=== PATIENT | male | born 1980 | race Two or more races ===

== ENCOUNTER 2017-03-06 08:58 | Day surgery (SDC) | payer BC ==
[~2017-03-06] VITALS: Ht 167.6 cm; Wt 77.1 kg
[2017-03-06] VITALS (9 sets, daily range): BP systolic 104–119; BP diastolic 58–74
--- NOTE | 2017-03-06 06:56 | Anethesia Preoperative Eval ---
Anesthesia Pre-op PMH/ROS General Date of Evaluation: Mar 06, 2017 Time of Evaluation: 06:55 Anesthesiologist: floyd ASA Score: ASA 3 Mallampati Score Class I : Soft palate, uvula, fauces, pillars visible Class II: Soft palate, uvula, fauces visible Class III: Soft palate, base of uvula visible Class IV: Only hard plate visible Mallampati Classification: Class II Surgeon: peter Diagnosis: gerd Surgical Procedure: egd Anesthesia History: none Social History: current smoker Family History: no anesthesia problems Allergies: Coded Allergies: NO KNOWN ALLERGIES (Verified Allergy, Unknown, 03/06/17) Medications: see eMAR Past Medical History Cardiovascular: Reports: HTN, other - hypercholesterolemia Pulmonary: Reports: other - tobacco use Gastrointestinal/Genitourinary: Reports: GERD Anesthesia Pre-op Phys. Exam Physician Exam Last Vital Signs Date Time Temp Pulse Resp B/P (MAP) Pulse Ox O2 Delivery O2 Flow Rate FiO2 03/06/17 09:29 97.6 58 17 114/72 98 Room Air Constitutional: NAD Neurologic: CN 2-12 intact Cardiovascular: RRR Respiratory: CTA Gastrointestinal: S/NT/ND Airway Exam Mallampati Score: Class II MO: full Neck: supple TMD: 2fb ROM: full Teeth: intact Anesthesia Pre-op A/P Risk Assessment & Plan Assessment: asa3 Plan: mac Status Change Before Surgery: No Pre-Antibiotics Drug: WALTER Cloud Mar 06, 2017 06:56
[2017-03-06] MEDS ORDERED: NKM (09:29)
--- NOTE | 2017-03-06 10:44 | Pre-Procedure Note/Attestation ---
Pre-Procedure Note/Attestation Complete Prior to Procedure Planned Procedure: not applicable Procedure Narrative: EGD Indications for Procedure Pre-Operative Diagnosis: GERD, abd pain Attestation I attest that I discussed the nature of the procedure; its benefits; risks and complications; and alternatives (and the risks and benefits of such alternatives ), prior to the procedure, with the patient (or the patient's legal accounts payable representative). I attest that, if there was a reasonable possibility of needing a blood transfusion, the patient (or the patient's legal accounts payable representative) was given the [facility] standardized written summary, pursuant to the Natanael Yovanny Blood Safety Act ([place] Health and Safety Code # 1645, as amended). I attest that I re-evaluated the patient just prior to the surgery and that there has been no change in the patient's H&P, except as documented below: MARIANNA ALBERTO Mar 06, 2017 10:44
--- NOTE | 2017-03-06 10:46 | Short Stay Surgery H&P ---
History of Present Illness History of Present Illness Chief Complaint gerd, abd pain HPI Terrance Mark is a 36 year old male who was admitted on for GERD Patient History Allergies: Coded Allergies: NO KNOWN ALLERGIES (Verified Allergy, Unknown, 03/06/17) PAST MEDICAL HISTORY: (1) HTN (hypertension) (2) Hypercholesteremia Past Surgeries: Social History: Medication History Scheduled No Known Medications* (NKM - No Known Medications*), 0 ., (Reported) Review of Systems Cardiovascular: Reports: no symptoms Respiratory: Reports: no symptoms Skeletal: Reports: no symptoms Gastrointestinal: Reports: no symptoms, gastro esophageal reflux disease Genitourinary: Reports: no symptoms Neurologic: Reports: no symptoms Endocrine: Reports: no symptoms Hematologic: Reports: no symptoms Physical Exam Vital Signs Last Vital Signs Date Time Temp Pulse Resp B/P (MAP) Pulse Ox O2 Delivery O2 Flow Rate FiO2 03/06/17 09:29 97.6 58 17 114/72 98 Room Air Skin: normal HENT: normal Heart: normal Lungs: normal Abdomen: normal Extremities: normal Plan Plan of Care EGD Final Diagnosis: Attestation Are the patient's medical conditions optimized for surgery? Attestation Response: yes MARIANNA ALBERTO Mar 06, 2017 10:46
[2017-03-06] MEDS ORDERED: Lidocaine 1% MPF 10mg/ml 5ml ONE (11:00)
[2017-03-06] MEDS ORDERED: Propofol 200mg/20ml IV ONE (11:00)
--- NOTE | 2017-03-06 11:07 | Endoscopy Procedure Note ---
Endoscopy Procedure Note Indication for Procedure: gerd Procedures Performed: EGD Operative Findings/Diagnosis: gastritis Specimen: yes Pt Tolerated Procedure Well: Yes Estimated Blood Loss: none Anesthesiologist: radhames Anesthesia: MAC Implant(s) used?: No 50 yrs or older w/o bx or poly: Not Applicable 10yrs. F/U not recommended: Not Applicable MARIANNA ALBERTO Mar 06, 2017 11:07
[2017-03-06] MEDS ORDERED: fentaNYL 100 mcg/2 mL IV PRN (11:30)
[2017-03-06] MEDS ORDERED: Midazolam 2mg/2ml Inj IVP PRN (11:30)
[2017-03-06] MEDS ORDERED: DiphenhydrAMINE 50mg/ml Inj IVP PRN (11:30)
[2017-03-06] MEDS ORDERED: Atropine Inj 1mg/10ml Syr IV PRN (11:30)
--- NOTE | 2017-03-06 11:30 | Immediate Post-Op Evaluation ---
Immediate Post-Op Evalulation Immediate Post-Op Evalulation Procedure: egd Date of Evaluation: Mar 06, 2017 Time of Evaluation: 11:28 IV Fluids: 450ml 0.9ns Blood Products: none Estimated Blood Loss: negligible Blood Pressure Systolic: 113 Blood Pressure Diastolic: 61 Pulse Rate: 65 Respiratory Rate: 18 O2 Sat by Pulse Oximetry: 100 Temperature (Fahrenheit): 98.1 Pain Score (1-10): 0 Nausea: No Vomiting: No Complications none Patient Status: awake, reacts, patent Hydration Status: adequate Drug: WALTER Cloud Mar 06, 2017 11:29
--- NOTE | 2017-03-06 11:31 | 48 Hour Post Anesthesia Eval ---
Post Anesthesia Evaluation Procedure: egd Date of Evaluation: Mar 06, 2017 Time of Evaluation: 11:30 Blood Pressure Systolic: 113 0: 65 Pulse Rate: 65 Respiratory Rate: 18 Temperature (Fahrenheit): 98.1 O2 Sat by Pulse Oximetry: 100 Airway: patent Nausea: No Vomiting: No Pain Intensity: 0 Hydration Status: adequate Cardiopulmonary Status: stable Mental Status/LOC: patient returned to baseline Post-Anesthesia Complications: none Follow-up care needed: N/A WALTER URIBE Mar 06, 2017 11:31
--- NOTE | 2017-03-06 20:15 | Procedure Note ---
DATE OF PROCEDURE: 03/06/2017 SURGEON: Joseph Mensah M.D. PROCEDURE: Upper endoscopy with biopsy. ANESTHESIOLOGIST: Meri Morales M.D. INSTRUMENT: Olympus adult flexible upper endoscope. INDICATION: Persistent abdominal pain. REASON FOR PROCEDURE: The procedure, risks, benefits, and possible consequences, including hemorrhage, aspiration, perforation and infection, and alternative treatments, were explained to the patient/legal guardian by Dr. Joseph Mensah and the patient/legal guardian understood and accepted these risks. PROCEDURE: After informed consent was obtained and the patient was adequately sedated, Olympus upper endoscope was advanced through mouth into the second portion of duodenum and retroflexion was performed in the stomach. The patient has diffuse moderate to severe gastritis, highly suspicious for H. pylori infection. Random biopsy from body and antrum was obtained. There was no evidence of mass, ulceration or any other pathology seen. The patient tolerated the procedure without any complication. SUMMARY FINDINGS: Diffuse moderate to severe gastritis, highly suspicious for H. pylori infection, status post biopsy. RECOMMENDATIONS: Followup biopsy results and treat accordingly. I want to thank, Dr. Karen King for this kind referral. Joseph Mensah M.D. DR: OBIE JOB#: [id number] CC: Karen King M.D.; Fax#: [phone]
== END 2017-03-06 12:30 | disposition home or self-care (01) ==
LOC: GAS 08:58
DX: R10.9 Unspecified abdominal pain (principal); K29.50 Unspecified chronic gastritis without bleeding; I10 Essential (primary) hypertension; E78.00 Pure hypercholesterolemia, unspecified; K21.9 Gastro-esophageal reflux disease without esophagitis; F17.200 Nicotine dependence, unspecified, uncomplicated
CPT/HCPCS: 43239; J2704; 94003; 94150